=== PATIENT | female | born 1985 | race African-American/Black ===

== ENCOUNTER 2016-03-18 23:03 | Emergency (ER) | payer OTHER ==
[~2016-03-18] VITALS: Ht 180.3 cm; Wt 102.6 kg
[~2016-03-18 23:03] MED LIST: AZITHROMYCIN500 M1 PO; BACTROBAN CREAM15 GM TP; DELTASONE20 M1 PO; MONTELUKAST SOD10 MG PO; NYAMYC60 GM TP; NYSTATIN-TRIAMC15 GM TP; PREDNISONE10 MG PO; PREDNISONE20 MG PO; PREDNISONE50 MG PO; PROVENTIL,2.5 MG/0.5 AEROSOL; PROVENTIL,2.5 MG/3 M IH; SYMBICORT60 INHALAT IH; VENTOLIN HFA18 GM IH
[2016-03-18 23:54] LABS: HEMATOCRIT 44.5 % (36.0-46.0); MCH 28.7 PG (29.0-34.0); MCHC 34.2 G/DL (30.0-36.0); MEAN PLAT.VOLUME 8.4 uM^3 (9.5-12.4); RBC DIS.WIDTH-CV 12.5 % (11.8-14.6)
[2016-03-19 00:04] LABS: CHLORIDE 103 mEq/L (99-109); POTASSIUM 3.7 mEq/L (3.7-5.4); SODIUM 138 mEq/L (136-147)
[2016-03-19 00:05] LABS: PLATELET COUNT 381 K/uL (156-360); WHITE BLOOD COUNT 5.6 K/uL (4.1-10.2)
[2016-03-19 00:07] LABS: GLUCOSE 97 mg/dL (70-99)
[2016-03-19 00:08] LABS: ANION GAP 9 MEQ/L (2-14)
[2016-03-19 00:09] LABS: TOTAL BILIRUBIN 0.4 mg/dL (0.0-1.0)
[2016-03-19 00:10] LABS: ALKALINE PHOSPHATASE 55 IU/L (3-129); GFR ESTIMATE (CALCULATED) > 59 mL/min/
[2016-03-19 00:11] LABS: UREA NITROGEN (BUN) 11 mg/dL (9-23)
[2016-03-19 00:14] LABS: LIPASE 20 U/L (1.0-51.0)
[2016-03-19 00:24] LABS: QUANTITATIVE HCG < 4.0 MIU/ML
[2016-03-19] MEDS ORDERED: ZOFRAN ODT4 MG PO (01:45)
[2016-03-19 02:29] VITALS: BP 111/78
== END 2016-03-19 02:35 | disposition home or self-care (01) ==
LOC: EME 23:03
DX: R11.2 Nausea with vomiting, unspecified (principal); R19.7 Diarrhea, unspecified; R42 Dizziness and giddiness; E86.0 Dehydration; J45.909 Unspecified asthma, uncomplicated; F17.200 Nicotine dependence, unspecified, uncomplicated; Z88.0 Allergy status to penicillin
CPT/HCPCS: 80053; 81003; 83690; 84702; 85027; 99281; 99285; J2405; J7030; S0028

== ENCOUNTER 2017-10-15 17:11 | Emergency (ER) | payer OTHER ==
[~2017-10-15] VITALS: Ht 177.8 cm; Wt 105.8 kg
[~2017-10-15 17:11] MED LIST changes: +ZOFRAN ODT4 MG PO
[2017-10-15] MEDS ORDERED: NAPROSYN500 MG PO (20:51)
[2017-10-15] MEDS ORDERED: VALIUM2 MG PO (20:51)
[2017-10-15] MEDS ORDERED: NORCO 5/3251 TABLET PO (20:51)
[2017-10-15 21:09] VITALS: BP 156/88
== END 2017-10-15 21:10 | disposition home or self-care (01) ==
LOC: EME 17:11
DX: S16.1XXA Strain of muscle, fascia and tendon at neck level, initial encounter (principal); Z88.0 Allergy status to penicillin; F17.200 Nicotine dependence, unspecified, uncomplicated
CPT/HCPCS: 72125; 99281; 99284; J1100; J1885; J2270